=== PATIENT | female | born 1990 ===

== ENCOUNTER 2023-05-15 21:19 | Emergency (ER) | payer SELFPAY ==
[~2023-05-15] VITALS: Ht 165 cm; Wt 162.3 kg
[2023-05-15 21:33] VITALS: BP 157/106
[2023-05-15] MEDS ORDERED: IBUPROFEN 800 MG TABLET PO STA (21:39)
[2023-05-15] MEDS ORDERED: AMOXICILLIN/Clavulanate 875 MG TABLET PO STA (21:39)
[2023-05-15] MEDS ORDERED: IBUP-1780 PO (21:45)
[2023-05-15] MEDS ORDERED: CHLO473M4 MM (21:45)
[2023-05-15] MEDS ORDERED: AMOX1TAB12 PO (21:45)
--- NOTE | 2023-05-15 21:46 | ED EENT ---
History of Present Illness General Chief Complaint: Dental Problems/Pain Stated Complaint: TOOTH PAIN Source: patient History of Present Illness Date Seen by Provider: May 15, 2023 Time Seen by Provider: 21:25 Initial Comments 32-year-old female presenting with complaints of dental pain on the left upper side. She has multiple cavities and bad teeth. On Saturday while she was eating something she had a tooth break. She has had increasing pain since then. She ran out of her ibuprofen 800 mg pills yesterday. She was having more severe pain tonight so she came to the emergency department. She recently moved here from [place] and has not established with a dentist. She does have diabetes and high blood pressure as well. She does continue to smoke. She denies any allergies to medications. Timing/Duration: abrupt Severity: severe Location: facial, dental Prearrival Treatment: over the counter meds Modifying Factors: Worse With Other (eating and drinking makes it worse) Associated Symptoms: No change in hearing, No cough, No drooling, No ear drainage, No facial pain/swelling, No fever, No malaise, No nasal congestion/drainage, No poor fluid intake, No poor solids intake; tooth pain Allergies and Home Medications Allergies Coded Allergies: No Known Drug Allergies (Unverified , 05/15/23) Patient Home Medication List Home Medication List Reviewed: Yes Amoxicillin/Potassium Clav (Amox Tr-K Clv 875-125 mg Tab) 875 Mg-125 Mg Tablet, 1 EACH PO BID Prescribed by: TOOTIE BILLS on 05/15/232144 Chlorhexidine Gluconate (Peridex) 0.12 % Mouthwash, 15 ML MM BID Prescribed by: TOOTIE BILLS on 05/15/232144 Ibuprofen (Ibuprofen) 800 Mg Tablet, 800 MG PO Q8H PRN for PAIN Prescribed by: TOOTIE BILLS on 05/15/232144 Review of Systems Review of Systems Constitutional: No chills, No fever Eyes: No Symptoms Reported Ears: No Symptoms Reported Nose: no symptoms reported Mouth: see HPI Throat: no symptoms reported Respiratory: no symptoms reported Cardiovascular: no symptoms reported Gastrointestinal: no symptoms reported Musculoskeletal: no symptoms reported Skin: no symptoms reported Neurological: No Symptoms Reported Past Jsztcih-Bmtyau-Hlvgve Hx Patient Social History Tobacco Use?: Yes Tobacco type used: Cigarettes Smoking Status: Current Everyday Smoker Past Medical History Surgery/Hospitalization HX: Diabetes Insulin Dependent, Hypertension, Dental caries, Obesity Physical Exam Vital Signs Vital Signs - First Documented 05/15/23 21:33 Temp 37.1 Pulse 91 Resp 18 B/P (MAP) 157/106 (123) Pulse Ox 97 O2 Delivery Room Air Height, Weight, BMI Height: '" Weight: lbs. oz. kg; BMI Method: General Appearance: no apparent distress, obese Eyes: bilateral eye PERRL, bilateral eye EOMI Mouth/Throat: dental tenderness, other (widespread dental decay and left upper tooth fracture ) Cardiovascular: normal peripheral pulses, regular rate, rhythm Respiratory: chest non-tender, lungs clear, normal breath sounds Neurologic/Psychiatric: alert Skin: normal color, warm/dry Progress/Results/Core Measures Results/Orders My Orders Orders - TOOTIE BILLS MD Ibuprofen Tablet (Ibuprofen Tablet) (05/15/23 21:39) Amoxicillin/Clavulanate Tablet (Amoxicil (05/15/23 21:39) Vital Signs/I&O 05/15/23 21:33 Temp 37.1 Pulse 91 Resp 18 B/P (MAP) 157/106 (123) Pulse Ox 97 O2 Delivery Room Air Progress Progress Note : Progress Note Discussed treatment options including local dental block with lidocaine. Patient refused the dental block with lidocaine. She was agreeable to taking antibiotics and requested ibuprofen and Tylenol for pain. She stated that she did not want a narcotic. Encouraged to get up with the dentist as soon as possible. Started on Augmentin and ibuprofen here in the ED. Sent prescriptions for these to the pharmacy as well as Peridex to try and help with gingivitis and dental infection. Encouraged to get with the dentist this as possible and follow-up through [facility]. Departure Impression Primary Impression: Pain due to dental caries Additional Impression: Broken tooth injury Qualified Codes: S02.5XXA - Fracture of tooth (traumatic), initial encounter for closed fracture Disposition: 01 HOME, SELF-CARE Condition: Stable Departure-Patient Inst. Decision time for Depature: 21:42 Referrals: NO,LOCAL PHYSICIAN (PCP) Primary Care Physician [facility] Patient Instructions: Tooth Decay ED, Dental Pain ED, Mouth and dental injuries in adults Add. Discharge Instructions: Take the antibiotic until it is gone. Take the ibuprofen to help with pain and inflammation. Follow-up with [facility] and see about getting in with the dental clinic through the [facility] that is in [place]. Call [phone] and check about getting in with the dental clinic. Follow-up with dentist as soon as possible. All discharge instructions reviewed with patient and/or family. Voiced understanding. Scripts Chlorhexidine Gluconate (Peridex) 0.12 % Mouthwash 15 ML MM BID for dental cavities/gingivitis for 15 Days, #450 ML 0 Refills Prov: TOOTIE BILLS MD 05/15/23 Ibuprofen (Ibuprofen) 800 Mg Tablet 800 MG PO Q8H PRN for PAIN for 10 Days, #30 TAB 0 Refills Prov: TOOTIE BILLS MD 05/15/23 Amoxicillin/Potassium Clav (Amox Tr-K Clv 875-125 mg Tab) 875 Mg-125 Mg Tablet 1 EACH PO BID for dental pain/cavities for 10 Days, #20 TAB 0 Refills Prov: TOOTIE BILLS MD 05/15/23 Images Mouth/Nose 1 - Caries, Fracture Tooth, Swelling, Tenderness TOOTIE BILLS MD May 15, 2023 21:46
== END 2023-05-15 21:53 | disposition home or self-care (01) ==
LOC: ER FS 21:22
DX: S02.5XXA Fracture of tooth (traumatic), initial encounter for closed fracture (principal); K02.9 Dental caries, unspecified; F17.210 Nicotine dependence, cigarettes, uncomplicated; E11.9 Type 2 diabetes mellitus without complications; Z79.4 Long term (current) use of insulin; X58.XXXA Exposure to other specified factors, initial encounter
CPT/HCPCS: 99283